=== PATIENT | female | born 1980 | race Caucasian/White ===

== ENCOUNTER 2017-08-06 15:35 | Emergency (ER) | payer OTHER ==
[~2017-08-06] VITALS: Ht 175.3 cm; Wt 115.2 kg
[~2017-08-06 15:35] MED LIST: BENADRYL50 MG PO; EPIPEN ADU0.3 MG/0.3 IM; FLEXERIL10 MG PO; IBUPROFEN800 MG PO; NAPROSYN500 MG PO; NASONEX17 GM BOTH NARES; NORCO 5/3251 TABLET PO; PRENATAL TABLE1 EAC3 PO; TRAMADOL HCL50 MG PO; TYLENOL EXTRA500 MG PO; TYLENOL SINUS1 EA16 PO; VOLTAREN75 MG PO; ZOFRAN4 MG PO; ZYRTEC-D1 TABLE1 PO; ZYRTEC10 M1 PO; [UNRECOGNIZED DRUG - OTHER] IM
[2017-08-06 18:40] LABS: HEMATOCRIT 38.9 % (36.0-46.0); HEMOGLOBIN 13.2 G/DL (11.9-15.5); MCH 30.9 PG (29.0-34.0); MCHC 33.9 G/DL (30.0-36.0); MCV 91.1 FL (83-99); PLATELET COUNT 298 K/uL (156-360); RBC DIS.WIDTH-CV 11.8 % (11.8-14.6); RBC DIS.WIDTH-SD 39.2 % (39-53); RED BLOOD COUNT 4.27 M/uL (3.80-5.20); WHITE BLOOD COUNT 7.8 K/uL (4.1-10.2)
[2017-08-06 18:47] LABS: CHLORIDE 106 mEq/L (99-109); POTASSIUM 4.1 mEq/L (3.7-5.4); SODIUM 141 mEq/L (136-147)
[2017-08-06 18:49] LABS: GLUCOSE 83 mg/dL (70-99)
[2017-08-06 18:53] LABS: CREATININE 0.7 mg/dL (0.6-1.3); GFR ESTIMATE (CALCULATED) > 59 mL/min/
[2017-08-06 18:54] LABS: UREA NITROGEN (BUN) 11 mg/dL (9-23)
[2017-08-06 19:15] LABS: ERTH.SED.RATE 28 MM/HR (0-20)
[2017-08-06] MEDS ORDERED: MOTRIN800 MG PO (20:07)
[2017-08-06 20:29] VITALS: BP 133/86
== END 2017-08-06 20:32 | disposition home or self-care (01) ==
LOC: EME 15:35
PROVIDERS: Nurse Practitioner Family
DX: R51 Headache (principal); R11.0 Nausea; Z86.69 Personal history of other diseases of the nervous system and sense organs; F32.9 Major depressive disorder, single episode, unspecified; Z88.1 Allergy status to other antibiotic agents; Z88.0 Allergy status to penicillin; Z88.8 Allergy status to other drugs, medicaments and biological substances
CPT/HCPCS: 80048; 85027; 85651; 99281; 99284; J1200; J1885; Q0164

== ENCOUNTER 2017-08-17 12:18 | Emergency (ER) | payer OTHER ==
[~2017-08-17] VITALS: Ht 175.3 cm; Wt 115.2 kg
[~2017-08-17 12:18] MED LIST changes: +MOTRIN800 MG PO
[2017-08-17] MEDS ORDERED: NAPROSYN500 MG PO (13:57)
[2017-08-17] MEDS ORDERED: PERCOCET 5/31 TABLET PO (13:57)
[2017-08-17 14:11] VITALS: BP 138/99
== END 2017-08-17 14:13 | disposition home or self-care (01) ==
LOC: EME 12:18
DX: M26.609 Unspecified temporomandibular joint disorder, unspecified side (principal); F32.9 Major depressive disorder, single episode, unspecified; Z90.49 Acquired absence of other specified parts of digestive tract; Z88.0 Allergy status to penicillin; Z88.1 Allergy status to other antibiotic agents; Z88.8 Allergy status to other drugs, medicaments and biological substances
CPT/HCPCS: 99281; 99284